=== PATIENT | female | born 1960 | race Caucasian/White ===

== ENCOUNTER 2023-08-28 18:58 | Emergency (ER) | payer MEDICAID ==
[~2023-08-28] VITALS: Ht 152.4 cm; Wt 93.0 kg
[~2023-08-28 18:58] MED LIST: ASPI-1160 MT; ATOR10TA MT; CHOL400D7 PO; IBUP-2029; LOSA50TA41 PO; MAGN400C PO
[2023-08-28 19:05] VITALS: BP 117/50; PULSE 74; RESP 16; TEMP 98.7; O2SAT 99
[2023-08-28 21:10] LABS: BASOPHILS % 0.4 % (0.0-2.0); EOSINOPHILS % 0.5 % (0.0-5.0); HEMATOCRIT. 39.7 % (36.0-48.0); HEMOGLOBIN. 13.2 g/dL (12.0-16.0); LYMPHOCYTES % 24.4 % (20.0-50.0); MEAN CORPUSCULAR HGB CONC 33.3 g/dL (31.0-37.0); MEAN CORPUSCULAR VOLUME 90.1 fL (81.0-99.0); MEAN PLATELET VOLUME 8.7 fl (7.4-10.4); MONOCYTES % 5.3 % (2.0-8.0); NEUTROPHILS % 69.4 % (40.0-76.0); PLATELET 181 x1000/uL (130-400); RED BLOOD CELL COUNT 4.41 mill/uL (4.2-5.4); RED CELL DISTRIBUTION WIDTH 15.4 % (11.6-14.6); WHITE BLOOD COUNT 6.3 x1000/uL (4.5-11.0)
[2023-08-28 21:19] LABS: CHLORIDE 107 mEq/L (98-107); POTASSIUM 3.7 mEq/L (3.5-5.1); SODIUM 138 mEq/L (136-145)
[2023-08-28 21:20] LABS: CALCIUM 8.9 mg/dL (8.7-10.4); CARBON DIOXIDE 26 mEq/L (21-32)
[2023-08-28 21:25] LABS: CREATININE 0.8 mg/dL (0.6-1.0); GLUCOSE 131 mg/dL (70-105); UREA NITROGEN BLOOD 16 mg/dL (9-23)
[2023-08-28] MEDS ORDERED: CEPH500C2 MT (23:46)
[2023-08-28] MEDS ORDERED: SULF1TAB48 MT (23:46)
[2023-08-29] MEDS ORDERED: ACETAMINOPHEN 500MG TABLET PO ONE (00:15)
== END 2023-08-29 00:18 | disposition home or self-care (01) ==
LOC: ER 18:58
DX: L03.115 Cellulitis of right lower limb (principal); I10 Essential (primary) hypertension
CPT/HCPCS: 36415; 80048; 85025; 99283